=== PATIENT | female | born 1995 | race Caucasian/White ===

== ENCOUNTER 2020-08-14 14:57 | Emergency (ER) | payer OTHER, SELFPAY ==
[2020-08-14] MEDS ORDERED: NA CHLORIDE 0.9% 1,000 ML ONE ×2 (16:14→17:54)
[2020-08-14 16:46] LABS: Absolute Lymphocytes (CBC) 2.2 K/uL (0.7-4.9); Basophils % 0.7 % (0-1.3); Hematocrit 37.1 % (36.0-45.0); Lymphocytes % 26.7 % (15.3-44.8); MPV 9.7 fL (7.6-11.3); RBC Red Blood Cell Count 4.34 M/uL (3.86-4.86)
--- NOTE | 2020-08-14 16:47 | RAD REPORT ---
EXAM DESCRIPTION: US - Transvaginal Study Probe - 08/14/2020 4:33 pm CLINICAL HISTORY: Pelvic pain COMPARISON: none FINDINGS: The uterus measures 9 x 4 x 6cm. A fibroid is not seen. The endometrial stripe is normal t hickness. 4 x 2 millimeter fluid collection within the endometrium. Small nabothian cysts within the cervix The ovaries are normal in size and echotexture. A 3.1 centimeter cyst is present within the left adne xa. The right adnexal unremarkable No significant free fluid is seen. IMPRESSION: 4 x 2 millimeter fluid collection within the endometrium is nonspecific. B HCG level wou ld be helpful to exclude a gestational sac. 3.1 centimeter left adnexal cyst likely benign. A followup ultrasound a couple months recommended
[2020-08-14 17:01] LABS: BUN Blood Urea Nitrogen 9 mg/dL (7-18); Bicarbonate 25 mmol/L (21-32); Glucose Level 76 mg/dL (74-106); Sodium Level 143 mmol/L (136-145)
--- NOTE | 2020-08-14 17:35 | EDPHYS ---
Physician Documentation [facility] Name: Pascale Wood Age: 25 yrs Sex: Female : 1995 Arrival Date: 08/14/2020 Time: 15:00 Bed 7 Private MD: ED Physician Brian Cochran HPI: 08/14 15:34 This 25 yrs old Female presents to ER via Ambulatory with complaints of judith Vaginal Bleeding, Dizziness. 15:34 The patient presents with vaginal bleeding that is. 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 - Social history:: Smoking status: Patient reports the use of cigarette tobacco products, denies chronic smoking, but will smoke occasionally. ROS: 16:56 Positive for vaginal bleeding. judith 16:56 Constitutional: Negative for fever, chills, and weight loss, Eyes: Negative for injury, pain, redness, and discharge, ENT: Negative for injury, pain, and discharge, Neck: Negative for injury, pain, and swelling, Cardiovascular: Negative for chest pain, palpitations, and edema, Abdomen/GI: Negative for abdominal pain, nausea, vomiting, diarrhea, and constipation, Back: Negative for injury and pain, : Negative for injury, bleeding, discharge, and swelling, MS/Extremity: Negative for injury and deformity, Skin: Negative for injury, rash, and discoloration, Neuro: Negative for headache, weakness, numbness, tingling, and seizure, Psych: Negative for depression, anxiety, suicide ideation, homicidal ideation, and hallucinations, Allergy/Immunology: Negative for hives, rash, and allergies, Endocrine: Negative for neck swelling, polydipsia, polyuria, polyphagia, and marked weight changes, Hematologic/Lymphatic: Negative for swollen nodes, abnormal bleeding, and unusual bruising. 16:56 Respiratory: Negative for cough, dyspnea on exertion, orthopnea, shortness of breath. Exam: 16:56 Constitutional: This is a well developed, well nourished patient who is awake, alert, judith and in no acute distress. Head/Face: Normocephalic, atraumatic. Eyes: Pupils equal round and reactive to light, extra-ocular motions intact. Lids and lashes normal. Conjunctiva and sclera are non-icteric and not injected. Cornea within normal limits. Periorbital areas with no swelling, redness, or edema. ENT: Nares patent. No nasal discharge, no septal abnormalities noted. Tympanic membranes are normal and external auditory canals are clear. Oropharynx with no redness, swelling, or masses, exudates, or evidence of obstruction, uvula midline. Mucous membranes moist. Neck: Trachea midline, no thyromegaly or masses palpated, and no cervical lymphadenopathy. Supple, full range of motion without nuchal rigidity, or vertebral point tenderness. No Meningismus. Chest/axilla: Normal chest wall appearance and motion. Nontender with no deformity. No lesions are appreciated. Cardiovascular: Regular rate and rhythm with a normal S1 and S2. No gallops, murmurs, or rubs. Normal PMI, no JVD. No pulse deficits. Respiratory: Lungs have equal breath sounds bilaterally, clear to auscultation and percussion. No rales, rhonchi or wheezes noted. No increased work of breathing, no retractions or nasal flaring. Abdomen/GI: Soft, non-tender, with normal bowel sounds. No distension or tympany. No guarding or rebound. No evidence of tenderness throughout. Back: No spinal tenderness. No costovertebral tenderness. Full range of motion. Skin: Warm, dry with normal turgor. Normal color with no rashes, no lesions, and no evidence of cellulitis. MS/ Extremity: Pulses equal, no cyanosis. Neurovascular intact. Full, normal range of motion. Neuro: Awake and alert, GCS 15, oriented to person, place, time, and situation. Cranial nerves II-XII grossly intact. Motor strength 5/5 in all extremities. Sensory grossly intact. Cerebellar exam normal. Normal gait. Psych: Awake, alert, with orientation to person, place and time. Behavior, mood, and affect are within normal limits. 16:56 Musculoskeletal/extremity: DVT Exam: No signs of deep vein thrombosis. no pain, no swelling, no tenderness, negative Homans' sign noted on exam, no appreciated bluish discoloration, no erythema, no increased warmth. 16:56 Skin: Appearance: Color: pale, Temperature: normal temperature, Moisture: normal moisture, petechiae, not noted, ecchymosis, not noted, flushing, not noted, diaphoresis is not appreciated, swelling, is not appreciated. Vital Signs: 15:15 BP 121 / 86; Pulse 106; Resp 17 S; Temp 98.3(TE); Pulse Ox 99% on R/A; Weight 95.25 kg jd3 (R); Height 5 ft. 9 in. (175.26 cm) (R); Pain 5/10; 16:28 BP 114 / 76; Pulse 79; Resp 17; Pulse Ox 100% on R/A; tw2 17:33 BP 104 / 49; Pulse 63; Resp 17; Pulse Ox 98% on R/A; tw2 18:35 BP 115 / 78; Pulse 75; Resp 17; Pulse Ox 100% on R/A; tw2 15:15 Body Mass Index 31.01 (95.25 kg, 175.26 cm) jd3 MDM: 15:31 Patient medically screened. [facility] 16:58 Differential diagnosis: dysmenorrhea, menometrorrhagia, menorrhea, Neoplasm nonspecific judith abdominal pain, urinary tract infection. Data reviewed: vital signs, nurses notes, lab test result(s), radiologic studies, ultrasound. Data interpreted: front desk monitor: rate is 79 beats/min, rhythm is regular, Pulse oximetry: on room air is 100 %. Counseling: I had a detailed discussion with the patient and/or guardian regarding: the historical points, exam findings, and any diagnostic results supporting the discharge/admit diagnosis, lab results, radiology results, the need for outpatient follow up, for definitive care, an OB/Gyne specialist. 08/14 15:34 Order name: Abo/rh Typing; Complete Time: 17:31 [facility] 08/14 15:34 Order name: Basic Metabolic Panel; Complete Time: 17:02 [facility] 08/14 15:34 Order name: CBC with Diff; Complete Time: 18:01 [facility] 08/14 16:57 Order name: Quantitative Hcg; Complete Time: 18:01 ok 08/14 17:46 Order name: CBC Smear Scan; Complete Time: 18:01 [facility] 08/14 17:51 Order name: Urine Dipstick-Ancillary; Complete Time: 18:01 [facility] 08/14 15:34 Order name: Urine Test (obtain specimen); Complete Time: 18:09 [facility] 08/14 15:34 Order name: IV Saline Lock; Complete Time: 16:37 [facility] 08/14 15:34 Order name: US Transvaginal Study (Probe); Complete Time: 16:49 [facility] 08/14 17:51 Order name: Urine --Ancillary (enter results) ok 08/14 17:52 Order name: Urine --Ancillary [facility] 08/14 18:09 Order name: ABO/RH no charge [facility] 08/14 15:34 Order name: Labs collected and sent; Complete Time: 16:37 [facility] 08/14 15:34 Order name: NPO; Complete Time: 16:37 [facility] 08/14 15:34 Order name: Urine Dipstick-Ancillary (obtain specimen); Complete Time: 18:09 [facility] Administered Medications: Discontinued: NS 0.9% 1000 ml IV at 1 bolus Per protocol; 1000 mL bolus 16:30 Drug: NS 0.9% 1000 ml Route: IV; Rate: 1 bolus; Site: right antecubital; ld1 19:40 Follow up: IV Status: Completed infusion; IV Intake: 1000ml ad5 17:35 Drug: NS 0.9% 1000 ml Route: IV; Rate: 1 bolus; Site: left antecubital; ld1 Disposition: 08/14/20 17:34 Discharged to Home. Impression: Abnormal uterine and vaginal bleeding, unspecified, Weakness. - Condition is Stable. - Discharge Instructions: Dysmenorrhea, Dysfunctional Uterine Bleeding, Abnormal Uterine Bleeding, [id number], Dysmenorrhea, [id number]. - Prescriptions for Ibuprofen 600 mg Oral Tablet - take 1 tablet by ORAL route every 6 hours As needed take with food; 30 tablet. - Medication Reconciliation Form, Thank You Letter, Antibiotic Education, Prescription Opioid Use, Work release form form. - Follow up: Private Physician; When: 2 - 3 days; Reason: Recheck today's complaints, Continuance of care, Re-evaluation by your physician. Follow up: Yosi Rivas; When: 2 - 3 days; Reason: Recheck today's complaints, Continuance of care, Re-evaluation by your physician. - Problem is new. - Symptoms have improved. Signatures: Dispatcher [employer] [facility] Brian Cochran MD MD cha Davies, Jonathon, RN RN jd3 Silvia Perez RN RN ld1 Alex Elijah ad5 Corrections: (The following items were deleted from the chart) 19:45 17:34 08/14/2020 17:34 Discharged to Home. Impression: Abnormal uterine and vaginal ad5 bleeding, unspecified; Weakness. Condition is Stable. Discharge Instructions: Dysmenorrhea, Dysfunctional Uterine Bleeding, Abnormal Uterine Bleeding, [id number], Dysmenorrhea, [id number]. Prescriptions for Ibuprofen 600 mg Oral Tablet - take 1 tablet by ORAL route every 6 hours As needed take with food; 30 tablet. and Forms are Medication Reconciliation Form, Thank You Letter, Antibiotic Education, Prescription Opioid Use. Follow up: Private Physician; When: 2 - 3 days; Reason: Recheck today's complaints, Continuance of care, Re-evaluation by your physician. Follow up: Yosi Rivas; When: 2 - 3 days; Reason: Recheck today's complaints, Continuance of care, Re-evaluation by your physician. Problem is new. Symptoms have improved. judith
--- NOTE | 2020-08-14 17:35 | ER ---
Nurse's Notes [facility] Name: Pascale Wood Age: 25 yrs Sex: Female : 1995 Arrival Date: 08/14/2020 Time: 15:00 Bed 7 Private MD: Diagnosis: Abnormal uterine and vaginal bleeding, unspecified;Weakness Presentation: 08/14 15:12 Chief complaint: Patient states: "I am feeling fatigue. I have been bleeding for about jd3 3 weeks now. I saw Dr. Rivas and he placed me on a control to help, but i have continued to have heavy flow with clots.". Coronavirus screen: At this time, the client does not indicate any symptoms associated with coronavirus-19. Ebola Screen: Patient negative for fever greater than or equal to 101.5 degrees Fahrenheit, and additional compatible Ebola Virus Disease symptoms. Initial Sepsis Screen: Does the patient meet any 2 criteria? No. Patient's initial sepsis screen is negative. Does the patient have a suspected source of infection? No. Patient's initial sepsis screen is negative. Risk Assessment: Do you want to hurt yourself or someone else? Patient reports no desire to harm self or others. Onset of symptoms was July 31, 2020. 15:12 Method Of Arrival: Ambulatory j 15:12 Acuity: DANIEL 3 jd3 Triage Assessment: 19:44 General: Behavior is calm, cooperative, appropriate for age. 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 - Social history:: Smoking status: Patient reports the use of cigarette tobacco products, denies chronic smoking, but will smoke occasionally. Screenin:25 Abuse screen: Denies threats or abuse. Nutritional screening: No deficits noted. tw2 Tuberculosis screening: No symptoms or risk factors identified. Fall Risk None identified. Assessment: 15:18 General: Appears in no apparent distress. Pain: Denies pain. Neuro: Level of tw2 Consciousness is awake, alert, obeys commands, Oriented to person, place, time, situation. Cardiovascular: Capillary refill < 3 seconds. Respiratory: Airway is patent Respiratory effort is even, unlabored, Respiratory pattern is regular, symmetrical. GI: No signs and/or symptoms were reported involving the gastrointestinal system. : per pts reports Reports vaginal bleeding that is bright red, for 3 weeks. EENT: No signs and/or symptoms were reported regarding the EENT system. Derm: No signs and/or symptoms reported regarding the dermatologic system. Musculoskeletal: Range of motion: intact in all extremities. 16:28 Reassessment: Patient appears in no apparent distress at this time. No changes from tw2 previously documented assessment. Patient and/or family updated on plan of care and expected duration. Pain level reassessed. Patient is alert, oriented x 3, equal unlabored respirations, skin warm/dry/pink. 17:30 Reassessment: Patient appears in no apparent distress at this time. No changes from tw2 previously documented assessment. Patient and/or family updated on plan of care and expected duration. Pain level reassessed. Patient is alert, oriented x 3, equal unlabored respirations, skin warm/dry/pink. 18:35 Reassessment: Patient appears in no apparent distress at this time. No changes from tw2 previously documented assessment. Patient and/or family updated on plan of care and expected duration. Pain level reassessed. Patient is alert, oriented x 3, equal unlabored respirations, skin warm/dry/pink. 19:32 Reassessment: Patient appears in no apparent distress at this time. Patient and/or ad5 family updated on plan of care and expected duration. Pain level reassessed. Patient is alert, oriented x 3, equal unlabored respirations, skin warm/dry/pink. Vital Signs: 15:15 BP 121 / 86; Pulse 106; Resp 17 S; Temp 98.3(TE); Pulse Ox 99% on R/A; Weight 95.25 kg jd3 (R); Height 5 ft. 9 in. (175.26 cm) (R); Pain 5/10; 16:28 BP 114 / 76; Pulse 79; Resp 17; Pulse Ox 100% on R/A; tw2 17:33 BP 104 / 49; Pulse 63; Resp 17; Pulse Ox 98% on R/A; tw2 18:35 BP 115 / 78; Pulse 75; Resp 17; Pulse Ox 100% on R/A; tw2 15:15 Body Mass Index 31.01 (95.25 kg, 175.26 cm) jd3 ED Course: 15:00 Patient arrived in ED. as 15:14 Triage completed. jd3 15:16 Arm band placed on. jd3 15:16 Bed in low position. Call light in reach. tw2 15:25 Randi Hale, RN is Primary Nurse. tw2 15:29 Brian Cochran MD is Attending Physician. judith 16:30 Initial lab(s) drawn, by me, sent to lab. Inserted saline lock: 20 gauge in right kj1 antecubital area, using aseptic technique. Blood collected. 16:33 US Transvaginal Study (Probe) In Process Unspecified. EDMS 17:34 Yosi Rivas MD is Referral Physician. judith 17:35 Awaiting: completion of IV fluids prior to discharge. tw2 19:44 No provider procedures requiring assistance completed. IV discontinued, intact, ad5 bleeding controlled, No redness/swelling at site. Pressure dressing applied. Administered Medications: Discontinued: NS 0.9% 1000 ml IV at 1 bolus Per protocol; 1000 mL bolus 16:30 Drug: NS 0.9% 1000 ml Route: IV; Rate: 1 bolus; Site: right antecubital; ld1 19:40 Follow up: IV Status: Completed infusion; IV Intake: 1000ml ad5 17:35 Drug: NS 0.9% 1000 ml Route: IV; Rate: 1 bolus; Site: left antecubital; ld1 Intake: 19:40 IV: 1000ml; Total: 1000ml. ad5 Outcome: 17:34 Discharge ordered by . judith 19:45 Discharged to home ambulatory. ad5 19:45 Condition: stable 19:45 Discharge instructions given to patient, Instructed on discharge instructions, follow up and referral plans. medication usage, Demonstrated understanding of instructions, follow-up care, medications, Prescriptions given X 1. 19:45 Patient left the ED. ad5 Signatures: Dispatcher [employer] ED[facility] Brian Cochran MD MD cha Martinez, Amelia as Randi Hale, RN RN tw2 Lyle Archibald RN RN jd3 Lety Vela kj1 Silvia Perez RN RN ld1 Elijah Johnson ad5
[2020-08-14 17:46] LABS: Blood Morphology Comment NOT SEEN (NOT SEEN); Platelet Estimate ADEQ; White Blood Cell Scan OK (OK)
[2020-08-14 17:52] LABS: Urine Blood Negative (Negative); Urine Glucose Negative (Negative); Urine Protein Negative (Negative); Urine Specific Gravity >=1.030 (1.005-1.030)
[2020-08-14 18:09] LABS: Urine Specific Gravity/Preg >1.030 (1.005-1.030)
[2020-08-14 19:50] VITALS: TEMP 98.3
[2020-08-14 19:55] VITALS: BP 115/78; O2SAT 100
== END 2020-08-14 19:45 | disposition home or self-care (01) ==
LOC: ER 14:57
DX: R53.1 Weakness (principal); F17.210 Nicotine dependence, cigarettes, uncomplicated
CPT/HCPCS: 36415; 76830; 80048; 81003; 81025; 84702; 85025; 86900; 86901; 96360; 96361; 99284; J7030